=== PATIENT | male | born 1980 | race Hispanic/Latino ===

== ENCOUNTER → 2022-05-16 | Day surgery (SDC) | payer BC, OTHER ==
[~2022-05-16] MED LIST: DEXAMETHASONE SOD PHOS 10 MG/1 ML VIAL ONE; DEXAMETHASONE SOD PHOS INJ 4 MG/ML SDV ONE; EPINEPHRINE HCL 1:1000 1ML 1 MG/ML AMP ONE; FENTANYL CITRATE/PF 100MCG/2 ML INJ ONE; GLYCOPYRROLATE INJ 0.2 MG/ML VIAL ONE; KETOROLAC TROMETHAMINE 30 MG/ML VIAL ONE; LIDOCAINE HCL 2% LOCAL INJ 5 ML SDV VIAL INJ ONE; MIDAZOLAM HCL 2 MG/2 ML VIAL ONE; NEOSTIGMINE 1 MG/ML 10ML VIAL ONE; ONDANSETRON HCL INJ 2MG/ML 2ML 2 MG/ML VIAL ONE; POVIDONE IODINE 0.05% 0.05 % ML PO ONE; PROPOFOL IV EMULSION 10 MG/ML 20 ML VIAL ONE; SEVOFLURANE INHAL SOLN 250 ML PEN BTL ONE; TYLENOL WITH C1 EACH PO
[2022-05-16 11:00] VITALS: BP 143/91
== END | disposition home or self-care (01) ==
LOC: OR 07:06
PROVIDERS: ATTEND Otolaryngology Otolaryngology/Facial Plastic Surgery
DX: J34.2 Deviated nasal septum (principal); M95.0 Acquired deformity of nose; J34.89 Other specified disorders of nose and nasal sinuses
CPT/HCPCS: 30465; 30520; 88304; 88311; 93005; J0171; J1100; J1885; J2001; J2250; J2405; J2704; J2710; J3010; 88300